=== PATIENT | male | born 1965 | race African-American/Black ===

== ENCOUNTER 2025-07-31 13:00 | Outpatient (AMB) | payer OTHER, SELFPAY ==
--- NOTE | 2025-07-31 13:02 | A.OFFPC_ITS ---
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: No Accompanied by: Self / Same As Patient Allergies No Known Allergies Allergy (Verified 07/31/25 13:06) Medication List - Last Reconciled 07/31/25 by Perla Bell MD No Known Home Meds Dental Screening Dental Screen Date: 07/31/25 Did you have a dental visit in the last 12 months?: Yes Did you have a dental problem in the last 6 months where you did not have access to dental care?: No Was dental information given to patient?: Patient has dentist HPI HPI Comments History of Present Illness Details The patient is a 59-year-old male presenting for the establishment of care and preventative health maintenance. The patient reports experiencing mood disturbances since December, following his daughter's kidney transplant. He describes fluctuating mood levels, with periods of feeling low, particularly due to his daughter's health issues. He started therapy two months ago but had to stop after seven sessions due to insurance coverage issues, which added financial stress. The patient also reports insomnia, sleeping from 9 PM to 1 or 2 AM, which affects his work performance due to fatigue. He has not been on any medication for sleep or mood but is considering options due to the impact on his daily life. The patient has a history of hypertension, with a current blood pressure reading of 148/90 mmHg. He maintains a healthy lifestyle, including regular exercise and a balanced diet, but his BMI remains high. He experiences occasional heartburn, particularly after consuming pasta sauce, but manages it with dietary adjustments. 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 He smokes marijuana daily, primarily for relaxation, and consumes alcohol occasionally. He has a family history of colon cancer, with his brother diagnosed at age 60, prompting the need for a colonoscopy. [facility] Social History (Updated 07/31/25 @ 13:09 by Arlyn Taylor MA) Household Members: None Both parents involved: No Caregiver staying overnight: No Housing: House Are you a primary urgent care physician to a significant other at home: No Do you presently have visiting nurse or other home services: No Alcohol intake: former Patient Tobacco Use Status: Never used Tobacco e-Cigarette/Vaping Use: Never Used Substance Use Type: Marijuana Within the last 12 months, any problems due to past substance use: None Have you been hit, kicked, punched, or otherwise hurt by someone within the past year? If so, by whom?: No Do you feel safe in your current relationship?: No Is there a partner from a previous relationship who is making you feel unsafe now?: No Are you made to feel afraid or neglected: No service: No Current occupational status: employed Cognitive needs: No Hearing needs: No Vision needs: No Questionnaire PHQ-9 Over the last 2 weeks, how often have you been bothered by any of the following problems? 1. Little interest or pleasure in doing things: not at all 2. Feeling down, depressed, or hopeless: not at all 3. Trouble falling or staying asleep, or sleeping too much: more than half the days 4. Feeling tired or having little energy: more than half the days 5. Poor appetite or overeating: several days 6. Feeling bad about yourself - or that you are a failure or have let yourself or your family down: more than half the days 7. Trouble concentrating on things, such as reading the newspaper or watching television: not at all 8. Moving or speaking so slowly that other people could have noticed. Or the opposite - being so fidgety or restless that you have been moving around a lot more than usual: not at all 9. Thoughts that you would be better off or of hurting yourself in some way: not at all Total score: 7 Depression Screening Interpretation: Positive (Assessed during clinic visit. Declined medications. Already in therapy. ) Depression Screening Follow-up: In treatment (Patient is already seeing a therapist. Declined medications. ) Depression Screening Done: Yes 64681 - PHQ-9 Billing: Yes Source: Developed by Drs. Wojciech Bales, Celia Hodges, Juni Black and colleagues, with an educational vickey from [employer]. Thrive Questionnaire Date Thrive assessed: 07/31/25 I am a: Patient What is your living situation today?: I have a steady place to live Within the past 12 months, did the food you bought not last and you didn't have the money to get more?: Never true Within the past 12 months, did you worry whether your food would run out before you got money to buy more?: Never true Do you have trouble paying for medicines?: I choose not to answer this question Do you have trouble getting transportation to medical appointments?: No Do you have trouble paying your heating and electricity bill?: No Do you have trouble taking care of your child, family member or friend?: No Do you have trouble with day-to-day activities such as bathing, preparing meals, shopping, managing finances, etc.?: No Are you currently unemployed and looking for a job?: Yes Are you interested in more education?: No Please select the resources that you would like help with: None Currently or been in a relationship where the following occur: I choose not to answer THRIVE Score: 0 AUDIT C Alcohol Use Questionnaire (AUDIT-C) 1. How often do you have a drink containing alcohol?: Monthly or less 2. How many drinks containing alcohol do you have on a typical day when you are drinking?: 1 or 2 3. How often do you have six or more drinks on one occasion?: Never Total Score: 1 ADONIS-7 AMB Questionnaire ADONIS-7 Date ADONIS - 7 assessed: 07/31/25 Feeling nervous, anxious, or on edge: 0 = Not at all Not being able to stop or control worryin = More than half the days Worrying too much about different things: 3 = Nearly every day Trouble relaxin = Not at all Being so restless that it is hard to sit still: 2 = More than half the days Becoming easily annoyed or irritable: 3 = Nearly every day Feeling afraid as if something awful might happen: 3 = Nearly every day Total ADONIS-7 score (0-4 normal; 5-9 mild; 10-14 moderate; 15-21 severe): 13 Source: Developed by Drs. Wojciech Bales, Celia Hodges, Juni Black and colleagues, with an educational vickey from [employer]. ADONIS-7 Assessment Billing ADONIS-7 Assessment Tool: AODNIS-7 Assessment 45573 Review of Systems Const Details: Positives besides what was mentioned in HPI are in BOLD Constitutional: No Weight Change, No Fever, No Chills, No Night Sweats, No Fatigue, No Malaise ENT/Mouth: No Hearing Changes, No Ear Pain, No Nasal Congestion, No Sinus Pain, No Hoarseness, No sore throat, No Rhinorrhea, No Swallowing Difficulty Eyes: No Eye Pain, No Swelling, No Redness, No Foreign Body, No Discharge, No Vision Changes Cardiovascular: No Chest Pain, No SOB, No PND, No Dyspnea on Exertion, No Orthopnea, No Claudication, No Edema, No Palpitations Respiratory: No Cough, No Sputum, No Wheezing, No Smoke Exposure, No Dyspnea Gastrointestinal: No Nausea, No Vomiting, No Diarrhea, No Constipation, No Pain, No Heartburn, No Anorexia, No Dysphagia, No Hematochezia, No Melena, No Flatulence, No Jaundice Genitourinary: No Dysmenorrhea, No DUB, No Dyspareunia, No Dysuria, No Urinary Frequency, No Hematuria, No Urinary Incontinence, No Urgency, No Flank Pain, No Urinary Flow Changes, No Hesitancy Musculoskeletal: No Arthralgias, No Myalgias, No Joint Swelling, No Joint Stiffness, No Back Pain, No Neck Pain, No Injury History Skin: No Skin Lesions, No Pruritis, No Hair Changes, No Breast/Skin Changes, No Nipple Discharge Neuro: No Weakness, No Numbness, No Paresthesias, No Loss of Consciousness, No Syncope, No Dizziness, No Headache, No Coordination Changes, No Recent Falls Psych: No Anxiety/Panic, No Depression, No Insomnia, No Personality Changes, No Delusions, No Rumination, No SI/HI/AH/VH, No Social Issues, No Memory Changes, No Violence/Abuse Hx., No Eating Concerns Heme/Lymph: No Bruising, No Bleeding, No Transfusions History, No Lymphadenopathy Endocrine: No Polyuria, No Polydipsia, No Temperature Intolerance Physical exam (Primary Care) Vital Signs: Last Vital Signs Pulse 87 07/31/25 13:04 BP 148/90 H 07/31/25 13:04 Pulse Ox 94 07/31/25 13:04 Oxygen Delivery Method Room Air 07/31/25 13:04 BMI result Body Mass Index 34.0 Tobacco/Smoking Status: Tobacco use Status Patient Tobacco Use Status Never used Tobacco 07/31/25 13:12 e-Cigarette/Vaping Use Never Used 07/31/25 13:12 PHQ-9: PHQ-9 Score PHQ-9: Total score 7 07/31/25 13:12 Depression Screening Interpretation: Positive (Assessed during clinic visit. Declined medications. Already in therapy. ) Depression Screening Follow-up: In treatment (Patient is already seeing a therapist. Declined medications. ) Thrive Assessment: Date of Thrive Assessment Date Thrive assessed 07/31/25 07/31/25 13:12 Currently or been in a relationship where the following occur: I choose not to answer Const Other: Pertinent findings are in BOLD GENERAL APPEARANCE NAD, activity normal for age, well developed/ well nourished, no cyanosis, pallor, or diaphoresis. EYES lids/conjunctiva normal. EARS/NOSE/THROAT Mucous membranes moist, nares normal, lips/teeth normal uvula midline without oral pharyngeal erythema, exudate or swelling TMs normal bilaterally. No lymphangitis/lymphedema. HEAD/NECK normocephalic atraumatic, no facial trauma, neck is supple. RESPIRATORY respiratory effort normal, speaks in full sentences, no tripod position, no accessory muscle use. Lungs clear to auscultation without rhonchi, wheezes, rales CARDIAC Regular rate and rhythm, no edema. ABDOMINAL Soft, ND/NT. No evidence of fluid wave. No pulsatile masses on exam, rebound tenderness, Hidalgo sign or pain over Mcburney's point. MUSCLES/EXTREMITIES No abnormal range of motion, no swelling. SKIN Warm, pink and dry. No rashes, dermatoses, petechiae or lesions. NEUROLOGICAL Speech is clear and appropriate. Normal level of consciousness. Gait and coordination are normal. 5/5 strength in all extremities. PSYCH Normal mood and affect. Judgement/competence is appropriate Coding Level of Care Code New Pt Level 4 (19099) Diagnoses Health maintenance examination Z00.00 Current mild episode of major depressive disorder without prior episode F32.0 Major depression recurrence: single episode Active/Remission status: currently active Major depression episode severity: mild Anxiety F41.9 Primary hypertension I10 Hypertension type: primary hypertension Gastroesophageal reflux disease without esophagitis K21.9 Esophagitis presence: without esophagitis Insomnia due to other mental disorder F51.05; F99 Insomnia type: due to other mental disorder Additional Codes ADONIS-7 Assessment Billing - ADONIS-7 Assessment Tool: ADONIS-7 Assessment 07127 ([id number]) PHQ-9 - 25808 - PHQ-9 Billing: Yes ([id number]) Assessment & Plan Assessment & Plan (1) Health maintenance examination: Code(s): Z00.00 - Encounter for general adult medical examination without abnormal findings Category: Medical Plan: CBC, CMP, Lipid panel, A1C, TSH w T4. Advised on getting Shingles vaccine. Patient reports completed COVID vaccines in the past. Patient will get the flu vaccine from retail pharmacy. Colonoscopy: ordered today. AAA: at 67. Ct lung: Not indicated as the patient stopped a long time ago. PSA: Ordered today. HIV: Declined HBV: Declined HCV: Declined Patient will bring prior records to check for vaccines status (Tdap...) (2) MDD (major depressive disorder): Code(s): F32.9 - Major depressive disorder, single episode, unspecified Category: Medical Qualifiers: Major depression recurrence: single episode Active/Remission status: currently active Major depression episode severity: mild Qualified Code(s): F32.0 - Major depressive disorder, single episode, mild Plan: Positive PhQ-9 in clinic. Patient is having life stressors as his daughter is undergoing kidney transplant. Major problem is sleep. Recommended reducing MJ use. Melatonin to help with sleep. Patient is already seeing a therapist. Declined medications during this visit for side effects. Denies SI. (3) Anxiety: Code(s): F41.9 - Anxiety disorder, unspecified Category: Medical Plan: As under MDD. (4) HTN (hypertension): Code(s): I10 - Essential (primary) hypertension Category: Medical Qualifiers: Hypertension type: primary hypertension Qualified Code(s): I10 - Essential (primary) hypertension Plan: We will re-assess during the next visit. Advised on low sodium diet. (5) GERD (gastroesophageal reflux disease): Code(s): K21.9 - Gastro-esophageal reflux disease without esophagitis Category: Medical Qualifiers: Esophagitis presence: without esophagitis Qualified Code(s): K21.9 - Gastro-esophageal reflux disease without esophagitis Plan: Patient is using chocolate milk to help with GERD. Currently well controlled with lifestyle modifications. (6) Insomnia: Code(s): G47.00 - Insomnia, unspecified Category: Medical Qualifiers: Insomnia type: due to other mental disorder Qualified Code(s): F51.05 - Insomnia due to other mental disorder; F99 - Mental disorder, not otherwise specified Plan Melatonin. We will re-address MDD and anxiety with next visit. Orders: Orders Prostate Specific Antigen Today Z00.00 - Encounter for general adult medical examination without abnormal findings TSH reflex Free T4 Today Z00.00 - Encounter for general adult medical examination without abnormal findings Complete Blood Count no Diff Today Z00.00 - Encounter for general adult medical examination without abnormal findings Comprehensive Met. Panel Today Z00.00 - Encounter for general adult medical examination without abnormal findings Hemoglobin A1c Today Z00.00 - Encounter for general adult medical examination without abnormal findings Lipid Panel Today Z00.00 - Encounter for general adult medical examination without abnormal findings Referrals GI Procedure Notification Z00.00 - Encounter for general adult medical examination without abnormal findings Medications: New melatonin 5 mg PO .at bedtime PRN 30 caps 3RF Sleeping 1 month
[2025-07-31 13:04] VITALS: BP 148/90; PULSE 87; O2SAT 94; BMI 34.0
--- OUTSIDE RECORDS SUMMARY | 2025-07-31 16:59 | XMS_ITS | Clinical Summary ---
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 Name Role Phone Unavailable Primary Care Provider Unavailabl e Allergies No known active allergies Medications No known medications Social History Tobacco Use Types Packs/Day Years Used Date Smoking Tobacco: Never Assessed Sex and Gender Information Value Date Recorded Sex Assigned at Male 09/03/2023 8:17 AM EDT Legal Sex Male 8:04 AM EDT Gender Identity Male 09/03/2023 8:17 AM EDT Sexual Orientation Choose not to disclose 2022 8:17 AM EDT Plan of Treatment Health Maintenance Due Date Last Done Comments CT Colonography 1967 Colonoscopy 1967 Colorectal Cancer Screening 1967 Dental Oral Exam 1967 Dental Prophylaxis 1967 Dental X-Ray: Full Mouth 1967 Depression Screening 1967 FIT DNA/Cologuard 1967 FIT 1967 FOBT 1967 HIV Screening 1967 Lipid Panel 1967 SDOH Screening 1967 Sigmoidoscopy 1967 Disability Screening 1967 Alcohol/Substance Use Screening 1979 Tobacco Screening 1979 Hepatitis C Screening 1985 DTaP/Tdap/Td Vaccines (1 - Tdap) 1986 Hepatitis B Vaccines (1 of 3 - 19+ 3-dose series) 1986 Pneumococcal Vaccine: 50+ Ye ars (1 of 1 - PCV) 2017 Zoster Vaccines (1 of 2) 2017 Dental X-Ray: Bitewings 09/04/2024 09/03/2023 COVID-19 Vaccine ( - 2023-2 5 season) 2025 Influenza Vaccine (#1) 2025 RSV Patients and Pa tients Aged 60 years or older (1 - 1-dose 75+ series) 2042 HIB Vaccines Aged Out No longer eligi ble based on patient's age to complete this topic HPV Vaccines Aged Out No longer eligi ble based on patient's age to complete this topic Hepatitis A Vaccines Aged Out No long er eligible based on patient's age to complete this topic IPV Vaccines Aged Out No longer eligi ble based on patient's age to complete this topic Meningococcal B Vaccine Aged Out No l onger eligible based on patient's age to complete this topic Meningococcal Vaccine Aged Out No marleni viviana eligible based on patient's age to complete this topic RSV under 20 months Aged Out No longe r eligible based on patient's age to complete this topic Rotavirus Vaccines Aged Out No longer eligible based on patient's age to complete this topic Procedures Procedure Name Priority Date/Time Associated Diagnosis Comments BITEWING - SINGLE RADIOGRAPHIC IMAGE Routine 09/03/2023 11:30 AM EDT from Last 3 Months or Most Recently Relevant to Health Maintenance Insurance DENTAL - [employer]
--- OUTSIDE RECORDS SUMMARY | 2025-07-31 16:59 | XMS_ITS | Clinical Summary ---
Author Organization [facility] Address [address] [place] [address] Care Team Providers Care Propeller Engineer Name Role Phone Rome Campa FADUMO Primary Care Provider Source Comments PLEASE NOTE, if this patient is a minor, it may be UNLAWFUL to discuss sensitive information that is contained in these records (such as FAMILY PLANNING, MENTAL HEALTH or SUBSTANCE ABUSE) with the minor patient's parent or other person without the patient's specific authorization.[facility] Allergies No known active allergies Medications hydrocortisone 1 % cream Apply topically 2 (two) times daily. 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 Family History Medical History Relation Name Comments Cancer Mother Lung cancer Relation Name Status Comments Mother Social History Tobacco Use Types Packs/Day Years Used Date Smoking Tobacco: Former Smokeless Tobacco: Never Alcohol Use Standard Drinks/Week Comments Yes 0 (1 standard drink = 0.6 oz pur e alcohol) Social Connections Answer Date Recorded Social Connections and Isolation 0 01/19/2020 Financial Resource Strain Answer Date R ecorded Financial Resource Strain 0 2019 Stress Answer Date Recorded Stress 0 01/19/2020 Physical Activity Answer Date Recorded Physical Activity 0 01/19/2020 Food Insecurity Answer Date Recorded Food 0 01/19/2020 Transportation Needs Answer Date Record ed Transportation 0 01/19/2020 Housing Stability Answer Date Recorded Housing 0 01/19/2020 Safety and Environment Answer Date Paulo rded Safety 0 01/19/2020 Utilities Answer Date Recorded Utilities 0 01/19/2020 Employment Answer Date Recorded Employment 0 01/19/2020 Sex and Gender Information Value Date Recorded Sex Assigned at Male 01/19/2020 8:37 AM PST Legal Sex Male 6:04 AM PDT Gender Identity Male 01/19/2020 8:37 AM PST Sexual Orientation Straight 01/19/2020 8: 37 AM PST Last Filed Vital Signs Vital Sign Reading Time Taken Comments Blood Pressure 142/80 01/19/2020 10:38 AM EST Pulse 82 01/19/2020 10:38 AM EST Temperature 37 C (98.6 F) 01/19/2020 10:38 AM EST Respiratory Rate 20 01/19/2020 10:38 AM EST Oxygen Saturation 97% 01/19/2020 10:38 AM EST Inhaled Oxygen Concentration - - Weight 112 kg (247 lb) 01/19/2020 10:38 AM EST Height 187.5 cm (6' 1.82 ) 01/19/2020 10:[address] Body Mass Index 31.87 01/19/2020 10:38 AM EST Plan of Treatment Not on file Insurance [employer]ERINE OBREGON/BERKLEY WOLF Care Teams Propeller Engineer Relationship Specialty Start Date End Date Rome Campa FNP [address] [place] [id number] PCP - General Family Medicine, L[facility] TESTER 08/10/16
== END 2025-07-31 14:15 | disposition home or self-care (01) ==
LOC: HO.HMCH 13:01
PROVIDERS: PCP Internal Medicine; Visit Provider Internal Medicine
DX: Z00.00 Encounter for general adult medical examination without abnormal findings (principal); F32.0 Major depressive disorder, single episode, mild; F41.9 Anxiety disorder, unspecified; I10 Essential (primary) hypertension; K21.9 Gastro-esophageal reflux disease without esophagitis; F51.05 Insomnia due to other mental disorder; F99 Mental disorder, not otherwise specified

== ENCOUNTER → 2025-07-31 13:00 | Outpatient (BNVA) | payer OTHER, SELFPAY | PROVIDERS: PCP Internal Medicine; Visit Provider Internal Medicine | DX: Z00.00 Encounter for general adult medical examination without abnormal findings (principal); G47.00 Insomnia, unspecified; F32.0 Major depressive disorder, single episode, mild; R12 Heartburn; F41.9 Anxiety disorder, unspecified; I10 Essential (primary) hypertension; K21.9 Gastro-esophageal reflux disease without esophagitis; F51.05 Insomnia due to other mental disorder | CPT/HCPCS: 96127 ==